=== PATIENT | female | born 1995 | race Caucasian/White ===

== ENCOUNTER 2020-09-12 19:19 | Emergency (ER) | payer OTHER ==
[2020-09-12 19:39] VITALS: BP 130/85; PULSE 107; TEMP 99.1; BMI 25.0
[2020-09-12] MEDS ORDERED: ONDANSETRON 4 MG/2 ML VIAL IVPB ONE (20:05)
[2020-09-12] MEDS ORDERED: SODIUM CHLORIDE 1,000 ML IV ONE (20:05)
[2020-09-12] MEDS ORDERED: KETOROLAC TROMETHAMINE 30 MG/1 ML VIAL IVPUSH ONE (20:05)
[2020-09-12] MEDS ORDERED: ONDANSETRON 4 MG/2 ML VIAL ONE (20:13)
[2020-09-12] MEDS ORDERED: KETOROLAC TROMETHAMINE 30 MG/1 ML VIAL ONE (20:13)
[2020-09-12 20:21] LABS: MEAN PLT VOLUME 6.6 fl (7.5-11.1)
[2020-09-12 20:24] LABS: BASO % 1.6 % (0-2.0); EOS % 1.6 % (0-4.5); HEMATOCRIT 41.3 % (32.4-45.2); HEMOGLOBIN 13.9 GM/dl (10.7-15.3); LYMPH % 37.1 % (8-40); MCHC 33.6 g/dl (32.0-36.0); MEAN CELL VOLUME 86.2 fl (80-96); MONO % 9.7 % (3.8-10.2); PLATELET COUNT 275 K/MM3 (134-434); RBC 4.79 M/mm3 (3.60-5.2); RDW 16.4 % (11.6-15.6); WHITE BLOOD COUNT 6.7 K/mm3 (4.0-10.8)
[2020-09-12 20:30] LABS: EPITHELIAL CELLS FEW /hpf
[2020-09-12 20:44] LABS: ALBUMIN 3.5 g/dl (3.4-5.0); BILIRUBIN,TOTAL 0.7 mg/dl (0.2-1); CALCIUM 8.4 mg/dl (8.5-10); CREATININE 0.6 mg/dl (0.55-1.3); TOT PROT 6.3 g/dl (6.4-8.2)
[2020-09-12] MEDS ORDERED: NITROFURANTOIN MACROCRYSTAL 50 MG CAPSULE (FP) ONE (22:55)
[2020-09-12] MEDS ORDERED: NITROFURANTOIN MACROCRYSTAL 50 MG CAPSULE (FP) PO SCH (23:00)
== END 2020-09-12 22:58 | disposition home or self-care (01) ==
LOC: FER 19:19
PROC: 3E0333Z Introduction of Anti-inflammatory into Peripheral Vein, Percutaneous Approach (ICD-10-PCS; principal; 2020-09-12)
PROC: 3E033NZ Introduction of Analgesics, Hypnotics, Sedatives into Peripheral Vein, Percutaneous Approach (ICD-10-PCS; 2020-09-12)
PROC: 3E0337Z Introduction of Electrolytic and Water Balance Substance into Peripheral Vein, Percutaneous Approach (ICD-10-PCS; 2020-09-12)
DX: R10.9 Unspecified abdominal pain (principal)
CPT/HCPCS: 36415; 74177-TC; 76705-TC; 80053; 81003; 81015; 82550; 83690; 84484; 84703; 85025; 87086; 93005; 99285-25; Q9967